=== PATIENT | female | born 1935 | race Caucasian/White ===

== ENCOUNTER → 2024-12-26 | Outpatient (CLI) | payer MEDICARE, OTHER, SELFPAY ==
--- NOTE | 2024-12-26 11:41 | US_ITS ---
PROCEDURE: Thyroid ultrasound. REASON FOR EXAM: History of nodules. TECHNIQUE: Thyroid ultrasound COMPARISON: Comparison is made with prior outside examination dated June 28, 2024. FINDINGS: Right thyroid lobe measures 4 cm x 1.3 cm x 1.1 cm.. It is of homogeneous echotexture. There is a 2.3 cm x 0.9 cm x 1.4 cm hypoechoic solid nodule with calcification in the midportion of the thyroid lobe. Left thyroid lobe measures 5.1 cm x 1.3 cm x 1.7 cm. There is a hypoechoic nodule measuring 1.1 cm x 0.8 cm x 0.7 cm in the midportion. A similar-appearing nodule measuring 1.9 cm x 1.1 cm x 1.1 cm seen as well. Isthmus thickness is2.2 mm. Thyroid Size: Enlarged left lobe of the thyroid. Background Echotexture: Heterogeneous multinodular US/Thyroid IMPRESSION: Heterogeneous architecture of the left lobe of the thyroid with enlargement. Dominant calcified nodule in the right lobe of the thyroid as well as 2 hypoech oic nodules in the left lobe. Correlation with nuclear medicine uptake and scan recommended if not already done. Reading Location: [id number]
== END | disposition home or self-care (01) ==
PROVIDERS: PCP Physician Assistant; Referring Provider Surgery; Visit Provider Surgery
DX: E04.1 Nontoxic single thyroid nodule (principal)
CPT/HCPCS: 76536

== ENCOUNTER → 2025-09-04 | Outpatient (CLI) | payer MEDICARE, OTHER, SELFPAY ==
--- NOTE | 2025-09-04 11:44 | US_ITS ---
PROCEDURE: THYROID 09/04/2025 REASON FOR EXAM: CHANGE IN VOICE/PAIN TECHNIQUE: Procedure Code: USTHY Modality: US Procedure: THYROID COMPARISON: Available previous exam dated 12/26/2024 and 06/28/2024 FINDINGS: Right thyroid lobe : The right thyroid lobe measured 4.1 x 1.3 x 1.2 cm in and demonstrates heterogeneous echo architecture. Left thyroid lobe: The left thyroid lobe measured 4.7 x 1.2 x 1.1 and demonstrates heterogeneous echo architecture. Isthmus: 2.6 mm in AP dimension. Background parenchymal echotexture is heterogeneous Nodules: 1. Lobe: Right, Location: Mid, Size: 2.3 x 0.9 x 1.4 cm, Stability: Smaller Composition: Solid or almost completely solid (+2) Echogenicity: Cannot be determined Margin: Smooth (+0) Shape: Wider than tall (+0) Echogenic Foci: Peripheral calcification (+2) TI-RADS: 4 Left. Lobe: Left, Location: Mid to lower, Size: 1.1 x 0.8 x 0.7 cm, Stability: Stable Composition: Solid or almost completely solid (+2) Echogenicity: Hypoechoic (+2) Margin: Smooth (+0) Shape: Wider than tall (+0) Echogenic Foci: None (+0) TI-RADS: 4 Left. Lobe: Left, Location: Mid to lower, Size: 1.9 x 1.1 x 1.1 cm, Stability: Stable Composition: Solid or almost completely solid (+2) Echogenicity: Hyper to Isoechoic (+1) Margin: Smooth (+0) Shape: Wider than tall (+0) Echogenic Foci: None (+0) TI-RADS: 3 US/Thyroid IMPRESSION: Stable bilateral thyroid nodules within a background of very heterogeneous glan d. There is no change since previous examination of 06/28/2024. RECOMMENDATION: Follow up ultrasound in 12 months to assess stability Reading Location: [facility]
== END | disposition home or self-care (01) ==
LOC: US 11:43
PROVIDERS: PCP Physician Assistant; Referring Provider Surgery; Visit Provider Surgery
DX: E04.1 Nontoxic single thyroid nodule (principal)
CPT/HCPCS: 76536